=== PATIENT | female | born 1985 | race Caucasian/White ===

== ENCOUNTER → 2021-01-02 | Outpatient (CLI) | payer BC ==
[~2021-01-02] MED LIST: IBU600 MG PO; PERCOCET 325 MG1 TA2 PO; PRENATAL TABLET PO; PROTONIX 40MG T40 MG PO; SYNTHROID0.075 MG/T
== END | disposition still patient (30) ==
LOC: ZCOL.LAB
DX: Z20.822 Contact with and (suspected) exposure to COVID-19 (principal)

== ENCOUNTER 2021-01-06 01:33 | Inpatient (IN) | payer BC ==
[~2021-01-06] VITALS: Ht 157.6 cm; Wt 82.7 kg
[2021-01-06] VITALS (54 sets, daily range): BP systolic 93–159; BP diastolic 55–98; PULSE 71–105; TEMP 97.6–99.1
[2021-01-06] MEDS ORDERED: PRENATAL TABLET PO (01:51)
[2021-01-06] MEDS ORDERED: PROTONIX 40MG T40 MG PO (01:51)
[2021-01-06] MEDS ORDERED: SYNTHROID0.075 MG/T (01:51)
--- NOTE | 2021-01-06 02:00 | NUR ---
G1 at 39.5 weeks gestation to L&D with c/o contractions. Patient changed into gown and wedged to left side in bed. EFMs explained and applied. FHR 130 bpm and reactive. Patient reports good movement. CTX q3-5 minutes, patient uncomfortable with them. Blood pressure elevated on admission, patient has a history of increased blood pressures in the office with possible white coat syndrome, 24 hour urine was collected and WNL. SVE 4/100/-2. Patient denies leaking of fluid or vaginal bleeding. Dr. Duffy updated and orders to admit recieved. Plan of care reviewed with patient and spouse.
[2021-01-06 03:03] LABS: BASO % 0.2 % (0.0-2.0); EOS # 0.1 (0.0-0.7); EOS % 0.7 % (0-4.0); GRAN # 10.1 (1.4-6.5); GRAN % 76.4 % (42.2-75.2); LYMPH # 2.2 (1.2-3.4); LYMPH % 16.6 % (20.0-51.0); MEAN CELL VOLUME 82 fl (80.0-100.0); MEAN CORPUSCULAR HGB CONC 31 g/dl (33.0-37.0); MEAN PLATELET VOLUME 12.3 fl (7.4-10.4); MONO # 0.8 (0.1-0.6); MONO % 5.6 % (1.7-9.3); PLATELET COUNT 220 K/mm3 (130-400); RED BLOOD COUNT 3.72 M/mm3 (4.10-5.30); REDCELL DISTRIBUTION WIDTH-CV 15.8 % (11.5-14.5)
[2021-01-06 03:07] LABS: HEMATOCRIT 30.6 % (37.0-47.0); HEMOGLOBIN 9.5 g/dl (12.5-16.0); MEAN CORPUSCULAR HEMOGLOBIN 26 pg (27.0-31.0)
--- NOTE | 2021-01-06 03:08 | NUR ---
0255 GONZÁLEZ Cochran to room to place epidural. Patient sits upright on the side of the bed for placement. FHR difficult to monitor in this position and intermittently traces maternal HR as it coorelates with spO2 tracing. Test dose administered at 0308 - see anesthesia record for details of procedure.
[2021-01-06 03:11] LABS: ALBUMIN 3.3 gm/dL (3.5-5.0); BILIRUBIN,TOTAL 0.3 mg/dL (0.0-1.0); CALCIUM 8.7 mg/dL (8.4-10.2); CREATININE, serum 0.67 (0.52-1.25); POTASSIUM 3.8 mmol/L (3.4-5.0); TOTAL PROTEIN 6.3 gm/dL (6.4-8.2)
--- NOTE | 2021-01-06 18:20 | NUR ---
Report recieved. Resting in bed at this time. Akbar catheter draining clear, yellow urine. Food to bedside. Updated whiteboard and reviewed POC.
--- NOTE | 2021-01-06 19:15 | NUR ---
Assessment and VS done. Ambulated well to the restroom. Akbar catheter removed; tolerated well. 350mls of clear, yellow urine drained from catheter. Clean peripad and gown in place. Fresh bedding on. Ambulated well in room.
[2021-01-07] VITALS: BP 128/73; PULSE 78; TEMP 98.4
[2021-01-07 05:24] VITALS: BP 137/75; PULSE 84; TEMP 98.3
[2021-01-07 06:52] LABS: HEMATOCRIT 26.3 % (37.0-47.0); HEMOGLOBIN 8.3 g/dl (12.5-16.0)
[2021-01-07 07:30] VITALS: BP 120/70; PULSE 82; TEMP 97.8
--- NOTE | 2021-01-07 09:39 | NUR ---
Initial visit; Parents thanked [employer] for offering congratulations and God's blessings for the of their daughter. [employer] thanked family for choosing [facility].
--- NOTE | 2021-01-07 13:33 | NUR ---
VIDEOS STARTED AT THIS TIME. MOTHER AND FOB BOTH PRESENT.
[2021-01-07 17:30] VITALS: BP 118/63; PULSE 87; TEMP 98.3
--- NOTE | 2021-01-07 17:30 | NUR ---
Rests in bed, alert, holds baby. 4385 Percocet 5/325 mg two given as ordered.
[2021-01-07 19:33] VITALS: BP 127/75; PULSE 93; TEMP 98.8
[2021-01-08 06:35] VITALS: BP 140/86; PULSE 90; TEMP 98.4
[2021-01-08] MEDS ORDERED: PERCOCET 325 MG1 TA2 PO (08:49)
[2021-01-08] MEDS ORDERED: IBU600 MG PO (08:49)
--- NOTE | 2021-01-08 15:12 | NUR ---
1440 DISCHARGE INSTRUCTIONS REVIEWED WITH PATIENT. PATIENT VERBALIZED UNDERSTANDING. ALL PERSONAL BELONGINGS GATHERED FROM PATIENT ROOM. PATIENT LEFT AMBULATORY AND IN NO APPARENT DISTRESS.
== END 2021-01-08 14:40 | disposition home or self-care (01) | DRG 788 ==
LOC: LDRO 01:33 → OB 02:21 → LDR 02:21 → OB 12:55
PROVIDERS: Obstetrics & Gynecology; ADMIT Obstetrics & Gynecology
PROC: 10D00Z1 Extraction of Products of Conception, Low, Open Approach (ICD-10-PCS; principal; 2021-01-06)
DX: O99.02 Anemia complicating childbirth (principal); O99.62 Diseases of the digestive system complicating childbirth; O99.344 Other mental disorders complicating childbirth; F32.9 Major depressive disorder, single episode, unspecified; F41.9 Anxiety disorder, unspecified; O99.284 Endocrine, nutritional and metabolic diseases complicating childbirth; Z3A.39 39 weeks gestation of pregnancy; Z37.0 Single live birth; R03.0 Elevated blood-pressure reading, without diagnosis of hypertension
CPT/HCPCS: J0690; J1100; J1885; J2405; J2590; J7120